=== PATIENT | female | born 1975 | race Caucasian/White ===

== ENCOUNTER 2022-06-19 01:08 | Outpatient (CLI) | payer MEDICAID, SELFPAY ==
--- NOTE | 2022-06-19 | DI.MAMMO_ITS ---
Exam(s) MAMMO SCREENING EXAM: MAMMO SCREENING CLINICAL HISTORY: SCREENING MAMMO FOR BREAST CANCER Z12.31 TECHNIQUE: Bilateral full field digital CC and MLO mammographic images were obtained with 3D tomosyn thesis and utilizing computer aided detection (CAD). COMPARISON: Available for comparison. FINDINGS: Masses/Architectural Distortion: There is a 5.8 mm nodule in the upper outer retroareolar region of t he left breast. No areas of architectural distortion are seen. Microcalcifications: No suspicious pleomorphic-type are seen. Skin Thickening/Nipple Retraction: None. IMPRESSION: 1. New 5.8 mm nodule in the upper outer retroareolar region of the left breast. 2. Spot compression view and limited left breast ultrasound are requested for further evaluation. BI-RADS Category 0 - Assessment Incomplete: Need additional imaging evaluation Breast Density - Category B - Scattered areas of fibroglandular density Breast density category C or D implies that the patient has dense breast tissue. Dense breast tissue is very common and is not abnormal but dense breast tissue can make it harder to find cancer on a ma mmogram. Also, dense breast tissue may increase their breast cancer risk. This information about the result of the mammogram report was provided to the patient to raise their awareness. Use this report when you speak with the patient about their risks for breast cancer, which includes their family hist ory. At that time, you may recommend for more screening tests (Ultrasound or MRI) as they might be us eful based on their risk. A negative radiographic report should not delay biopsy if a dominant or clinically suspicious mass is present. Up to ten percent of cancers are not identified on mammography. A negative report may reinforce clinical impression. Adenosis and dense breasts may obscure an underlying neoplasm. False positive reports average 6 to 10%. Patient will receive a letter notifying them of these results.
--- NOTE | 2022-06-19 13:00 | DI.RAD_ITS ---
Exam(s) XR CERVICAL SPINE COMP 4-5V EXAM: XR CERVICAL SPINE COMP 4-5V CLINICAL HISTORY: CERVICALGIA M54.2. TECHNIQUE: 2D digital imaging was performed. Five images were obtained. AP, odontoid, lateral and bi lateral oblique images were obtained. COMPARISON: No exams were available for comparison FINDINGS: The odontoid is intact. The lateral masses are well aligned. There is straightening of the normal ce rvical lordosis. Small endplate osteophytes are seen at C6-C7. No acute fracture or subluxation is p resent. No significant neural foraminal stenosis is present. The cervical thoracic junction is well maintained. The prevertebral soft tissues are unremarkable. Lung apices are clear. IMPRESSION: Mild degenerative changes at C6-C7. DATA REPOSITORY: RADIATION DOSE DELIVERED:
== END 2022-06-19 01:28 ==
LOC: DI 01:08
PROVIDERS: PCP Nurse Practitioner; Visit Provider Nurse Practitioner
DX: Z12.31 Encounter for screening mammogram for malignant neoplasm of breast (principal); M54.2 Cervicalgia
CPT/HCPCS: 77063; 77067; 72050

== ENCOUNTER 2022-06-25 07:47 | Day surgery (SDC) | payer MEDICAID, SELFPAY ==
--- NOTE | 2022-06-25 06:52 | W.PM.PROGNOT ---
Date of Service Date of service: 06/25/22 Time of Service: 08:49 Assessment and Plan Assessment and plan (1) Lipoma of both lower extremities: Status: Acute Assessment and plan: Mrs Gonzales is a pleasant 46-year-old female with multiple lipomas of the right and left thigh as well as one of her left forearm.? These have become tender and some of them have grown.? She would like to have them excised.? Because of the number of them I recommend having this done in the operating room under sedation.? We will use propofol sedation as well as local anesthetic.? The procedure was explained in detail as well as the risks, benefits and complications.? Complications include but are not limited to bleeding, infection, seroma, hematoma, wound dehiscence, recurrence, injury to underlying structures like nerves and muscle and adverse reaction to medications.? The patient's questions were entertained and answered to her satisfaction.? The patient had a good understanding of the procedure as well as the risks and the benefits and she wished to proceed.? No guarantees were given or implied. (2) Lipoma of left upper extremity: Status: Acute Subjective Subjective Interval history since last seen: Mayela is doing well. She has marked all her lipomas that she would like removed. She otherwise is doing well and has had no new changes to her health Time Spent with Patient Time Spent with Patient: <25 minutes Time was spent: counseling the patient
--- NOTE | 2022-06-25 06:53 | ROE_ITS ---
Date of service: 06/25/22 Time of Service: 10:05 Operative Note Operative Note DATE OF PROCEDURE: 06/25/22 PRE-OP DIAGNOSIS: multiple lipomas POST-OP DIAGNOSIS: same PROCEDURE: Excision of lipomas of thighs and upper extremity SURGEON: Anay Schwarz [employer]: Theresa Beth ANESTHESIA TYPE: Local By Surgeon and General:No Airway Refer to Anesthesia Record ESTIMATED BLOOD LOSS: 15 PATHOLOGY: none sent COMPLICATIONS: None Patient was transported to: same day Patient's condition: stable Indications: Mrs Gonzales is a pleasant 46-year-old female with multiple lipomas of the right and left thigh as well as one of her left forearm.? These have become tender and some of them have grown.? She would like to have them excised.? Because of the number of them I recommend having this done in the operating room under sedation.? We will use propofol sedation as well as local anesthetic.? The procedure was explained in detail as well as the risks, benefits and complications.? Complications include but are not limited to bleeding, infection, seroma, hematoma, wound dehiscence, recurrence, injury to underlying structures like nerves and muscle and adverse reaction to medications.? The patient's questions were entertained and answered to her satisfaction.? The patient had a good understanding of the procedure as well as the risks and the benefits and she wished to proceed.? No guarantees were given or implied. Findings: multiple benign lipomas Procedure Description: After informed consent was obtained, and the lipomas were marked by the patient, she was taken back to the operating room and transfered onto the ope rating table. Monitors were applied and she was placed under a general without an airway. A time out was done the patient name, , allergies to medications, and procedure to be performed were reviwed. Fire risk was assessed. her Lower extremities were placed in a frog leg position. Next her bilateral lower extremities and her left upper extremity were prepped and draped in a standard fashion. Theresa Beth worked on removal of the right lower extremity lipomas and I worked on the Left lower extremity and the left upper extremity. For all the lipomas 0.25% Bupivocaine was injected over the palpabe lipomas. An incision was made over every lipoma with a 15 blade. Dissection was done shraply with iris scissors. Once the lipoma was removed the incision was closed with 4-0 Monocryl. Once all the lipomas were removed the skin was cleaned and dried. Mastasol and steri-strips were applied. The patient was woken up and taken back to [facility] in stable condition. Sponge, needle counts were correct at the end of the case. Measurements: Left Lower Extremity: (CM) 2 x1 1.5 x1 (x3) 2.5 x 1.8 1x1 (x2) Right lower extremity: (CM) 1 x 1 (x4) 2 x 1.5 (x3) 1 x 0.8 (x2) 1.5 x 1 2.3 x 1.5 2.5 x 3 Left Upper extremity: (CM) 2.5 x 1.5
--- NOTE | 2022-06-25 06:54 | W.PM.DSUDISC ---
Date of service: 06/25/22 Time of Service: 11:23 Discharge Plan Disposition Patient Disposition: Home Condition: Stable Discharge Details Reason For Visit: lipomas Attending Provider: Anay Schwarz Primary Care Provider: Kaley Long Home Meds and New Rx's Prescriptions: Continued clonazepam 0.5 mg tablet 0.5 mg PO BID PRN sertraline 100 mg tablet 100 mg PO DAILY trazodone 150 mg tablet 150 mg PO DAILY atomoxetine [Strattera] 18 mg capsule 18 mg PO DAILY atorvastatin 10 mg tablet 10 mg PO QHS cyclobenzaprine 10 mg tablet 10 mg PO TID PRN Discharge Instructions Additional Instructions: Activity at Home after surgery: 1. As tolerated Diet, Nutrition, & wound healin. As tolerated Pain Medications: 1. Tylenol 650mg every 6 hours as needed and Ibuprofen 600 mg every 6 hours as needed. You may alternate between the 2 medications every 3 hours For Constipation: 1. Take Milk of Magnesia or MiraLax as needed for constipation Other: 1. You may shower daily. Do not scrub the incisions 2. Do not soak the incisions for 1 week 3. You may alternate ice and heat as needed for pain and swelling Wound Care: 1. Keep the incisions clean and dry Please call our office if you develop: 1. Fevers >101.5 2. Nausea or Vomiting 3. Worsening pain 4. Redness and thick discharge from the wounds If after hours please call the Hospital at and ask to speak to the on-call surgeon Stand Alone Forms: Anesthesia Discharge InstJono Verde (DSU) Activity:: Activity as Tolerated Remove Dressings/Wound Care:: Do Not Remove Shower/Bathe:: 24 hours Diet:: As Tolerated Discharge Orders Discharge Orders: Discharge Order (Routine); Ordered 06/25/22 Ordered By: Anay Schwarz DS: Diagnosis Discharge Diagnosis (1) Lipoma of both lower extremities: Status: Acute Asessment and Plan: Patient seen and examined after her surgery. Dressings are intact. She has minimal pain. Discussed ibuprofen, tylenol and ice for discomfort Reviewed Sx/Sx of infection Follow up appointment in 1 week (2) Lipoma of left upper extremity: Status: Acute
[2022-06-25 07:56] VITALS: BP 128/85; PULSE 76; RESP 17; TEMP 36.7; O2SAT 95
[2022-06-25] MEDS: Lactated Ringers 1,000 ML 80 ML IV (08:21)
--- NOTE | 2022-06-25 08:44 | W.ANESPRE ---
General Info Date of Service Date Performed: 06/25/22 Height: 5 ft 2.5 in Weight: 82.6 kg Body Mass Index (BMI): 32.8 Surgical Procedure: Operation Date: 06/25/22 08:55 Proposed Procedure Side Surgeon p Excision Lipomas, multiple Lt & Rt Lower Extremities & One of Lt Upper Extremity Bilateral Anay Schwarz MD Meds Allergies and Home Medications Allergies Allergy/AdvReac Type Severity Reaction Status Date / Time benzyl alcohol Allergy Unknown Rash Verified 06/25/22 08:10 Sulfa (Sulfonamide Allergy Unknown Rash From Verified 06/25/22 08:10 Antibiotics) neck down surgical glue Allergy Unknown Rash Uncoded 06/25/22 08:10 Home Medication Medication Instructions Recorded clonazepam 0.5 mg tablet 0.5 mg PO BID PRN 05/22/21 sertraline 100 mg tablet 100 mg PO DAILY 05/22/21 trazodone 150 mg tablet 150 mg PO DAILY 05/22/21 atomoxetine 18 mg capsule 18 mg PO DAILY 06/04/22 (Strattera) atorvastatin 10 mg tablet 10 mg PO QHS 06/04/22 cyclobenzaprine 10 mg tablet 10 mg PO TID PRN 06/09/22 Current Visit Medications: Current Medications Generic Name Dose Route Start Last Admin Trade Name Freq PRN Reason Stop Dose Admin Ringer's Solution 1,000 mls @ 80 mls/hr 06/25/22 06:00 06/25/22 08:21 IV 06/25/22 23:59 80 mls/hr INFUSION CODY Administration Cefazolin Sodium/Dextrose 2 gm in 50 mls @ 100 mls/hr 06/25/22 06:00 Ancef Duplex IVPB 06/25/22 23:59 PREOP CODY Ondansetron HCl 4 mg/ Sodium 52 mls @ 200 mls/hr 06/25/22 06:55 Chloride IVPB Q6H PRN PRN IV Miscellaneous Supplies 1 each 06/25/22 06:00 Iv Access IV 06/25/22 23:59 DIRECTED CODY Ibuprofen 600 mg 06/25/22 06:55 Ibuprofen 600 Mg Tab PO Q6H PRN PRN Pain Sodium Chloride 0 ml 06/25/22 06:00 Normal Saline Flush 10 Ml Syr IV 06/25/22 23:59 PRN PRN Sodium Chloride 0 ml 05/03/23 06:00 Normal Saline 10 Ml Vial IJ 06/25/22 23:59 DIRECTED PRN Sterile Water 0 ml 06/25/22 06:00 Water,Injection,Sterile 10 Ml Vial IJ 06/25/22 23:59 DIRECTED PRN PFSH Active Problems Active Problems: Problem Status Onset Code Allergic rhinitis due to allergen J30.9 Post-nasal drip R09.82 Globus sensation R09.89 Obesity (BMI 30.0-34.9) E66.9 Chronic fatigue R53.82 Lipoma of both lower extremities D17.23, D17.24 Lipoma of left upper extremity D17.22 Encounter for screening colonoscopy Z12.11 Medical History Medical History ADHD Chronic tension headache Fibromyalgia muscle pain Generalized anxiety disorder Habitual snoring Hot flashes due to surgical menopause Insomnia Irritable bowel syndrome without diarrhea Medical marijuana use Other chronic pain Panic disorder PTSD (post-traumatic stress disorder) Per pt. states no potential triggers for her time of this assessment Surgical History Surgical History H/O LEEP (~04/04/16) History of colposcopy (~01/16/16) History of cystoscopy History of right oophorectomy S/P laparoscopic assisted vaginal hysterectomy (LAVH) Tobacco Smoking/Tobacco Use Status: Former Tobacco Use Substance Use Substance use: Daily Substance use type: marijuana Vital Signs and Lab Results Vital Signs Most Recent Vital Signs in EMR: Most Recent Vital Signs Temp Pulse Resp BP Pulse Ox 36.7 C 76 17 128/85 95 06/25/22 07:56 06/25/22 07:56 06/25/22 07:56 06/25/22 07:56 06/25/22 07:56 Lab Results Blood Type / Crossmatch: No Data to Display Complete Blood Count: No Data to Display Complete Metabolic Panel: No Data to Display Liver Function Panel: No Data to Display Coagulation Panel: No Data to Display Cardiac Panel: No Data to Display Arterial Blood Gas: No Data to Display Venous Blood Gas: No Data to Display Pancreas Panel: No Data to Display Thyroid Panel: No Data to Display Infectious Disease: No Data to Display Blood Cultures: No Data to Display Toxicology Panel: No Data to Display Panel: No Data to Display Anesthesia Assessment and Plan Anesthesia History Personal History: No History of Anesthesia Complications Family History: No Family History of Anesthesia Complications Exercise Tolerance Exercise Tolerance: Metabolic Equivalents>4 Pertinent Negatives Pertinent Negatives: No Symptoms of GERD, No Major Cardiovascular Symptoms or Complaints, No Major Pulmonary Symptoms or Complaints and No History of CVA/TIA Cardiac & Pulmonary Exam Cardiac Exam: Normal S1/S2 Heart Sounds Pulmonary Exam: Clear Bilateral Breath Sounds Implantable Cardiac Device Does patient have a Pacemaker or an ICD?: No Airway Exam Known Difficult Airway: No Mallampati Class: 3 Mouth Opening: Normal (> 3cm) Thyromental Distance: Greater than 3 cm Neck Range of Motion: Full ROM Neck Circumference: Thick Teeth Condition: Normal Dentition ASA Classification ASA Score: ASA 2 Emergency Case?: No NPO Status NPO Status: NPO Clears >2 hours, Solids >8 hours Status Status: History of Hysterectomy Anesthesia Plan Resuscitation Status: Full Code Anesthesia Technique: General Anesthesia Airway Planned: Natural Airway Monitors Used: Standard Monitors
[2022-06-25 08:54] VITALS: BMI 32.8
[2022-06-25] MEDS: ceFAZolin 2 GM/50 ML BAG IVPB (08:57)
[2022-06-25] MEDS: Bupivacaine 0.25% Pres-Free 30 ML VIAL (09:56)
[2022-06-25 10:08] VITALS: BP 90/73; PULSE 68; RESP 17; TEMP 36.7; O2SAT 97
[2022-06-25 10:38] VITALS: BP 107/72; PULSE 68; RESP 17; TEMP 36.5; O2SAT 97
--- NOTE | 2022-06-25 10:58 | W.ANESPOSTOP ---
Postoperative Evaluation Date, Time and Location Date Performed: 06/25/22 Time Performed: 10:20 Patient Location: Day Surgery Unit Vital Signs Most Recent Imported Vital Signs: Most Recent Vital Signs Temp Pulse Resp BP Pulse Ox 36.7 C 68 17 90/73 L 97 06/25/22 10:08 06/25/22 10:08 06/25/22 10:08 06/25/22 10:08 06/25/22 10:08 Pain Score Most Recent Pain Score: Most Recent Pain Score Pain Level 2 06/25/22 10:08 Assessment Mental Status: Awake (Alert & Oriented to Patient Baseline) Airway and Respiratory Function: Patent airway with normal (patient baseline) respiratory exam Cardiovascular Function: Hemodynamically Stable Hydration Status: Adequately Hydrated Nausea & Vomiting: No Nausea or Vomiting Pain: Pain is tolerable per patient Peripheral Nerve Block: Patient did not receive a nerve block
== END 2022-06-25 07:48 | disposition home or self-care (01) ==
PROVIDERS: PCP Nurse Practitioner; Visit Provider Surgery
PROC: (CPT 11402; principal; 2022-06-25 08:45)
DX: D17.23 Benign lipomatous neoplasm of skin and subcutaneous tissue of right leg (principal); D17.24 Benign lipomatous neoplasm of skin and subcutaneous tissue of left leg; D17.22 Benign lipomatous neoplasm of skin and subcutaneous tissue of left arm
CPT/HCPCS: 11402 ×8; 11401 ×8; 11403 ×4; J0690; J1100; J2405

== ENCOUNTER 2022-07-01 01:23 | Outpatient (CLI) | payer MEDICAID, SELFPAY ==
--- NOTE | 2022-07-01 | DI.US_ITS ---
Exam(s) MG MAMMO SCREEN CALL BACK UNI US BREAST LT COMPLETE EXAM: MG MAMMO SCREEN CALL BACK UNI-LEFT AND COMPLETE LEFT BREAST ULTRASOUND CLINICAL HISTORY: F/U MAMMO,R92.8, NEW LT BREAST NODULE. TECHNIQUE: Unilateral LEFT BREAST spot mammographic images obtained with 3D tomosynthesisand [employer] computer aided detection (CAD). . Complete LEFT breast Ultrasound was also performed, including all 4 quadrants, the retroareolar regio n, and the ipsilateral axilla. COMPARISON: Prior mammograms were reviewed. This additional imaging was performed due to findings described on the recent screening mammogram of 06/19/2022. FINDINGS: DIAGNOSTIC MAMMOGRAM: Additional mammographic views performed todaydoes not dissipate the nodule described on the recent sc reening mammogram. We therefore proceeded with ultrasound. COMPLETE LEFT BREAST ULTRASOUND: Ultrasound performed today reveals a solitary finding which corresponds to the finding on the mammogr am. This has the appearance of a 5 x 4 mm probable hemorrhagic microcyst. There are no other focal findings in all 4 quadrants. Scanning of the ipsilateral axilla reveals no significant adenopathy. IMPRESSION: 1. Left breast nodule on mammogram corresponds to what has the appearance 5 x 4 mm probable hemorrha gic microcysts on ultrasound. Appropriate follow-up as discussed by myself with the patient today is repeat left breast imaging in 6 months to include repeat left breast mammogram and ultrasound. The patient was informed of these findings and recommendations by myself prior to leaving the departm ent today. BI-RADS Category 3 - 6 month - Probably Benign Finding: Recommend follow-up mammography in 6 months Breast Density - Category B - Scattered areas of fibroglandular density Breast density Category C or D implies that the patient has dense breast tissue. Dense breast tissue can make it harder to find cancer on a mammogram. Dense breast tissue is also associated with an incr eased risk of breast cancer. This information about the result of the mammogram report was provided to the patient to raise their awareness. Use this report when you speak with the patient about their risks for breast cancer, which includes their family history. At that time, you may recommend additional screening tests (Ultrasoun d or MRI) as these tests may add significant information. A negative radiographic report should not delay biopsy if a dominant or clinically suspicious mass is present. Up to ten percent of cancers are not identified on mammography. A negative report may reinforce clinical impression. Adenosis and dense breasts may obscure an underlying neoplasm. False positive reports average 6 to 10%. Patient will receive a letter notifying them of these results.
== END 2022-07-01 01:43 ==
LOC: DI 01:23
PROVIDERS: PCP Nurse Practitioner; Visit Provider Nurse Practitioner
DX: R92.8 Other abnormal and inconclusive findings on diagnostic imaging of breast (principal)
CPT/HCPCS: 76642; 77063; 77067

== ENCOUNTER 2022-07-01 02:36 | Outpatient (CLI) | payer MEDICAID, SELFPAY ==
[2022-07-02 15:02] LABS: ANA Interpretation Positive (Negative); ANA Titer Pattern 1:160 Speckled
== END 2022-07-01 02:37 | disposition home or self-care (01) ==
LOC: LBO 02:36
PROVIDERS: PCP Nurse Practitioner; Visit Provider Nurse Practitioner
DX: M79.7 Fibromyalgia (principal); D17.79 Benign lipomatous neoplasm of other sites; L65.9 Nonscarring hair loss, unspecified; R53.82 Chronic fatigue, unspecified
CPT/HCPCS: 36415; 86038

== ENCOUNTER 2022-07-15 09:44 | Day surgery (SDC) | payer MEDICAID, SELFPAY ==
[2022-07-15 10:13] VITALS: BP 114/79; PULSE 83; RESP 16; TEMP 36.7; O2SAT 97
[2022-07-15] MEDS: Lactated Ringers 1,000 ML 80 ML IV (10:35)
--- NOTE | 2022-07-15 11:09 | W.ANESPRE ---
General Info Date of Service Date Performed: 07/15/22 Height: 5 ft 2 in Weight: 81.5 kg Body Mass Index (BMI): 32.8 Surgical Procedure: Operation Date: 07/15/22 11:05 Proposed Procedure Side Surgeon tereza Smith MD Meds Allergies and Home Medications Allergies Allergy/AdvReac Type Severity Reaction Status Date / Time benzyl alcohol Allergy Unknown Rash Verified 07/15/22 09:59 Sulfa (Sulfonamide Allergy Unknown Rash From Verified 07/15/22 09:59 Antibiotics) neck down surgical glue Allergy Unknown Rash Uncoded 07/15/22 09:59 Home Medication Medication Instructions Recorded clonazepam 0.5 mg tablet 0.5 mg PO BID PRN 05/22/21 sertraline 100 mg tablet 100 mg PO DAILY 05/22/21 trazodone 150 mg tablet 150 mg PO HS 05/22/21 atomoxetine 18 mg capsule 18 mg PO DAILY PRN 06/04/22 (Strattera) atorvastatin 10 mg tablet 10 mg PO QHS 06/04/22 cyclobenzaprine 10 mg tablet 10 mg PO TID PRN 06/09/22 bisacodyl 5 mg tablet,delayed 5 mg PO ONCE #4 tabs 07/03/22 release (Dulcolax (bisacodyl)) polyethylene glycol 3350 17 17 g PO ONCE #238 grams 07/03/22 gram/dose oral powder Current Visit Medications: Current Medications Generic Name Dose Route Start Last Admin Trade Name Freq PRN Reason Stop Dose Admin Ringer's Solution 1,000 mls @ 80 mls/hr 07/15/22 06:00 07/15/22 10:35 IV 07/15/22 23:59 80 mls/hr INFUSION CODY Administration IV Miscellaneous Supplies 1 each 07/15/22 06:00 Iv Access IV 07/15/22 23:59 DIRECTED CODY Sodium Chloride 0 ml 07/15/22 06:00 Normal Saline Flush 10 Ml Syr IV 07/15/22 23:59 PRN PRN Sodium Chloride 0 ml 07/15/22 06:00 Normal Saline 10 Ml Vial IJ 07/15/22 23:59 DIRECTED PRN Sterile Water 0 ml 07/15/22 06:00 Water,Injection,Sterile 10 Ml Vial IJ 07/15/22 23:59 DIRECTED PRN PFSH Active Problems Active Problems: Problem Status Onset Code Allergic rhinitis due to allergen J30.9 Post-nasal drip R09.82 Globus sensation R09.89 Obesity (BMI 30.0-34.9) E66.9 Chronic fatigue R53.82 Lipoma of both lower extremities D17.23, D17.24 Lipoma of left upper extremity D17.22 Encounter for screening colonoscopy Z12.11 Medical History Medical History ADHD Chronic tension headache Fibromyalgia muscle pain Generalized anxiety disorder Habitual snoring Hot flashes due to surgical menopause Insomnia Irritable bowel syndrome without diarrhea Medical marijuana use Other chronic pain Panic disorder PTSD (post-traumatic stress disorder) Per pt. states no potential triggers for her time of this assessment Medical History Comments:: Daily Marijauna smoke. Surgical History Surgical History (Updated 07/15/22 @ 10:08 by Tracie Kaye) H/O LEEP (~04/04/16) History of colposcopy (~01/16/16) History of cystoscopy History of right oophorectomy S/P excision of lipoma 06/25/22 multiple LEs, LFA S/P laparoscopic assisted vaginal hysterectomy (LAVH) Tobacco Smoking/Tobacco Use Status: Former Tobacco Use Alcohol Alcohol Intake: current Alcohol intake frequency: a few times a month Substance Use Substance use: Daily Substance use type: marijuana Vital Signs and Lab Results Vital Signs Most Recent Vital Signs in EMR: Most Recent Vital Signs Temp Pulse Resp BP Pulse Ox 36.7 C 83 16 114/79 97 07/15/22 10:13 07/15/22 10:13 07/15/22 10:13 07/15/22 10:13 07/15/22 10:13 Lab Results Blood Type / Crossmatch: No Data to Display Complete Blood Count: No Data to Display Complete Metabolic Panel: No Data to Display Liver Function Panel: No Data to Display Coagulation Panel: No Data to Display Cardiac Panel: No Data to Display Arterial Blood Gas: No Data to Display Venous Blood Gas: No Data to Display Pancreas Panel: No Data to Display Thyroid Panel: No Data to Display Infectious Disease: No Data to Display Blood Cultures: No Data to Display Toxicology Panel: No Data to Display Panel: No Data to Display Anesthesia Assessment and Plan Anesthesia History Personal History: Awareness Under Anesthesia Family History: No Family History of Anesthesia Complications Exercise Tolerance Exercise Tolerance: Metabolic Equivalents>4 Pertinent Negatives Pertinent Negatives: No Symptoms of GERD, No Major Cardiovascular Symptoms or Complaints and No Major Pulmonary Symptoms or Complaints Cardiac & Pulmonary Exam Cardiac Exam: Normal S1/S2 Heart Sounds Pulmonary Exam: Clear Bilateral Breath Sounds Implantable Cardiac Device Does patient have a Pacemaker or an ICD?: No Airway Exam Known Difficult Airway: No Mallampati Class: 3 Mouth Opening: Normal (> 3cm) Thyromental Distance: Greater than 3 cm Neck Range of Motion: Full ROM Neck Circumference: Thick Teeth Condition: Normal Dentition ASA Classification ASA Score: ASA 3 Emergency Case?: No NPO Status NPO Status: NPO Clears >2 hours, Solids >8 hours Status Status: History of Hysterectomy Anesthesia Plan Resuscitation Status: Full Code Anesthesia Technique: General Anesthesia Airway Planned: Natural Airway Monitors Used: Standard Monitors
[2022-07-15 11:13] VITALS: BMI 32.8
--- NOTE | 2022-07-15 13:29 | COLE_ITS ---
Date of service: 07/15/22 Time of Service: 13:29 Colonoscopy Report Procedure Description: Procedures performed: 1. Colonoscopy Preoperative diagnosis: Screening colonoscopy Postoperative diagnosis: Normal Colon Surgeon: Harjit Smith Anesthesia: Owen Indication for procedure: 46-year-old woman without any symptoms, prior colonoscopy normal, no family history of colon cancer due for surveillance. Findings: Normal terminal ileum.? Normal Colon.? Normal Rectum. No dive rticulosis, no polyps, no hemorrhoidal disease. Surveillance/follow-up recommendations: 10 years Complications: None Blood loss: Minimal Prep: Excellent Specimens:? None Procedure in detail: Written consent was obtained from the patient who was in agreement with the risks, benefits and indications of the procedure.? We went to the endoscopy suite and laid the patient in left lateral decubitus position.? Anesthesia was administered which was tolerated well.? A timeout was performed and when we are all in agreement we began the procedure. Digital rectal exam and visual examination was performed and within normal limits.? A well?lubricated colonoscope was advanced without difficulty all the way to the cecum identified by the ileocecal valve, and triangular folds and appendiceal orifice.? Terminal ileum was normal.? It was then slowly withdrawn.?? Retroflexion was performed in the rectum.? The findings/interventions are noted above. The scope was then removed and the patient tolerated the procedure well and was then taken back to the PACU in hemodynamically stable condition.
[2022-07-15 13:30] VITALS: BP 113/71; PULSE 92; RESP 16; TEMP 37.1; O2SAT 97
[2022-07-15 14:00] VITALS: BP 117/80; PULSE 81; RESP 16; TEMP 36; O2SAT 100
--- NOTE | 2022-07-15 14:27 | W.ANESPOSTOP ---
Postoperative Evaluation Date, Time and Location Date Performed: 07/15/22 Time Performed: 14:27 Patient Location: Day Surgery Unit Vital Signs Most Recent Imported Vital Signs: Most Recent Vital Signs Temp Pulse Resp BP Pulse Ox 36 C L 81 16 117/80 100 07/15/22 14:00 07/15/22 14:00 07/15/22 14:00 07/15/22 14:00 07/15/22 14:00 Pain Score Most Recent Pain Score: Most Recent Pain Score Pain Level 0 07/15/22 14:00 Assessment Mental Status: Awake (Alert & Oriented to Patient Baseline) Airway and Respiratory Function: Patent airway with normal (patient baseline) respiratory exam Cardiovascular Function: Hemodynamically Stable Hydration Status: Adequately Hydrated Nausea & Vomiting: No Nausea or Vomiting Pain: Pt. Denies Any Pain Peripheral Nerve Block: Patient did not receive a nerve block
== END 2022-07-15 14:15 | disposition home or self-care (01) ==
PROVIDERS: PCP Nurse Practitioner; Visit Provider Student in an Organized Health Care Education/Training Program
PROC: 0DJD8ZZ Inspection of Lower Intestinal Tract, Via Natural or Artificial Opening Endoscopic (ICD-10-PCS; CPT 45378; principal; 2022-07-15 11:00)
DX: Z12.11 Encounter for screening for malignant neoplasm of colon (principal)
CPT/HCPCS: 45378; J2001; J2704

== ENCOUNTER → 2022-12-31 00:01 | Outpatient (CLI) | payer MEDICAID, SELFPAY ==
--- NOTE | 2022-12-31 | DI.MAMMO_ITS ---
Exam(s) MG MAMMO DIAGNOSTIC UNI US BREAST LT LIMITED EXAM: MG MAMMO DIAGNOSTIC UNI and U/S breast LT limited CLINICAL HISTORY: 6 MO F/U, F/U MAMMO, R92.8. TECHNIQUE: Craniocaudal and mediolateral oblique Full Field Digital Mammography views of the left br east with Computer Aided Diagnosis followed by Tomosynthesis and left breast ultrasound. COMPARISON: Comparison is made with prior examinations. FINDINGS: Mammography/Tomosynthesis: Masses/Architectural Distortion: There is a stable nodule in the retroareolar region of the left [address]. No suspicious nodules or architectural distortion is seen. Microcalcifictions: No suspicious pleomorphic-type are seen. Skin Thickening/Nipple Retraction: None. Limited left breast US: Echotexture: Normal appearance of the glandular tissue. Shadowing: No suspicious foci. Cyst: None. Solid lesions: There has been no change in size of the hypoechoic lesion measuring 7 mm at the 12 o'c lock position of the left breast 2 cm from the nipple. Ductal dilation: None. IMPRESSION: 1. No definite evidence of malignancy is noted. 2. A six-month follow-up left mammogram and ultrasound is requested for re-evaluation. 3. The findings were discussed with the patient on the date of the examination. BI-RADS Category 3 - 6 month - Probably Benign Finding: Recommend follow-up imaging in 6 months Breast Density - Category B - Scattered areas of fibroglandular density Breast density Category C or D implies that the patient has dense breast tissue. Dense breast tissue can make it harder to find cancer on a mammogram. Dense breast tissue is also associated with an incr eased risk of breast cancer. This information about the result of the mammogram report was provided to the patient to raise their awareness. Use this report when you speak with the patient about their risks for breast cancer, which includes their family history. At that time, you may recommend additional screening tests (Ultrasoun d or MRI) as these tests may add significant information. A negative radiographic report should not delay biopsy if a dominant or clinically suspicious mass is present. Up to ten percent of cancers are not identified on mammography. A negative report may reinforce clinical impression. Adenosis and dense breasts may obscure an underlying neoplasm. False positive reports average 6 to 10%. Patient will receive a letter notifying them of these results.
== END ==
PROVIDERS: PCP Nurse Practitioner; Visit Provider Nurse Practitioner
DX: Z12.31 Encounter for screening mammogram for malignant neoplasm of breast (principal); N63.25 Unspecified lump in the left breast, overlapping quadrants
CPT/HCPCS: 76642; 77061; 77065; G0279

== ENCOUNTER → 2023-07-02 00:28 | Outpatient (CLI) | payer MEDICAID, SELFPAY ==
--- NOTE | 2023-07-02 | DI.US_ITS ---
Exam(s) MG MAMMO DIAGNOSTIC BI US BREAST LT LIMITED EXAM: MG MAMMO DIAGNOSTIC BI and U/S breast LT CLINICAL HISTORY: R92.8 Abn mammo,6mo f/u. TECHNIQUE: Craniocaudal and mediolateral oblique Full Field Digital Mammography views with Computer Aided Diagnosis followed by Tomosynthesis and left breast ultrasound. COMPARISON: Comparison is made with prior examinations. FINDINGS: Mammography/Tomosynthesis: Masses/Architectural Distortion: There has been no change in appearance of the nodule in the upper ou ter quadrant of the left breast. No new nodules are identified. No areas of architectural distortio n are identified. Microcalcifictions: No suspicious pleomorphic-type are seen. Skin Thickening/Nipple Retraction: None. Limited left breast US: Echotexture: Normal appearance of the glandular tissue. Shadowing: No suspicious foci. Cyst: None. Solid lesions: The ovoid hypoechoic nodule at the 12 o'clock position of the left breast 2 cm from th e nipple is unchanged. It measures approximately 6 mm maximally. Ductal dilation: None. IMPRESSION: 1. Stable left breast nodule. 2. Six-month follow-up mammogram and ultrasound are requested. 3. The findings were discussed with the patient on the date of the examination. BI-RADS Category 3 - 6 month - Probably Benign Finding: Recommend follow-up imaging in 6 months Breast Density - Category B - Scattered areas of fibroglandular density Breast density Category C or D implies that the patient has dense breast tissue. Dense breast tissue can make it harder to find cancer on a mammogram. Dense breast tissue is also associated with an incr eased risk of breast cancer. This information about the result of the mammogram report was provided to the patient to raise their awareness. Use this report when you speak with the patient about their risks for breast cancer, which includes their family history. At that time, you may recommend additional screening tests (Ultrasoun d or MRI) as these tests may add significant information. A negative radiographic report should not delay biopsy if a dominant or clinically suspicious mass is present. Up to ten percent of cancers are not identified on mammography. A negative report may reinforce clinical impression. Adenosis and dense breasts may obscure an underlying neoplasm. False positive reports average 6 to 10%. Patient will receive a letter notifying them of these results.
== END ==
PROVIDERS: PCP Nurse Practitioner; Visit Provider Nurse Practitioner
DX: Z12.31 Encounter for screening mammogram for malignant neoplasm of breast (principal); R92.8 Other abnormal and inconclusive findings on diagnostic imaging of breast
CPT/HCPCS: 76642; 77062; 77066; G0279

== ENCOUNTER 2024-01-05 01:40 | Outpatient (CLI) | payer MEDICAID, SELFPAY ==
--- NOTE | 2024-01-05 | DI.MAMMO_ITS ---
Exam(s) MG MAMMO DIAGNOSTIC UNI EXAM: MG MAMMO DIAGNOSTIC UNI CLINICAL HISTORY: 6-mo f/u abnl and inconclusive findings on DI of breast, R92.8, TECHNIQUE: Left cc and MLO mammogram images were performed according to the usual protocol [facility] computer analysis with CAD system, tomosynthesis and C-view imaging. COMPARISON: MG MG MAMMO SCREENING from 06/19/2022 MG MG MAMMO SCREEN CALL BACK UNI from 07/01/2022 US US BREAST LT COMPLETE from 07/01/2022 US US BREAST LT LIMITED from 12/31/2022 MG MG MAMMO DIAGNOSTIC UNI from 12/31/2022 US US BREAST LT LIMITED from 07/02/2023 MG MG MAMMO DIAGNOSTIC BI from 07/02/2023 FINDINGS: The left breast is composed of scattered fibroglandular densities, Breast Density category B. The previously noted nodule in the anterior upper outer quadrant left breast is not discretely visual ized on today's exam. No suspicious masses or suspicious microcalcifications are seen. No skin thickening or abnormal axillary lymph nodes are seen. IMPRESSION: BI-RADS Category 1, Negative mammogram Bilateral screening mammography is recommended, due in 6 months. Breast Density - Category B, scattered fibroglandular densities. A negative radiographic report should not delay biopsy if a dominant or clinically suspicious mass is present. Up to ten percent of cancers are not identified on mammography. A negative report may reinforce clinical impression. Adenosis and dense breasts may obscure an underlying neoplasm. False positive reports average 6 to 10%. Patient will receive a letter notifying them of these results.
== END 2024-01-05 02:00 ==
LOC: DI 01:40
PROVIDERS: PCP Nurse Practitioner; Visit Provider Nurse Practitioner
DX: Z09 Encounter for follow-up examination after completed treatment for conditions other than malignant neoplasm (principal); R92.323 Mammographic fibroglandular density, bilateral breasts
CPT/HCPCS: 77061; 77065; G0279